=== PATIENT | male | born 1950 | race Caucasian/White ===

== ENCOUNTER 2024-03-05 05:30 | Observation (INO) | payer MEDICARE, OTHER ==
[2024-02-21 14:15] VITALS: BP 128/89
[~2024-03-05] VITALS: Ht 185.4 cm; Wt 118.1 kg
[2024-03-05] VITALS (14 sets, daily range): BP systolic 107–129; BP diastolic 72–102
[~2024-03-05 05:30] MED LIST: ADULT ASPIRIN R81 MG PO; ATORVASTATIN CA80 MG PO; CARVEDILOL25 MG PO; FLOMAX0.4 MG PO; LACTATED RINGER'S 1,000 ML IV SCH; LEVOTHYROXINE25 MC1 PO; LISINOPRIL-HCT1 EACH PO; METFORMIN HCL1000 M1 PO; OZEMPIC0.25 MG/02 SQ
--- NOTE | 2024-03-05 06:30 | NUR ---
0630-PTS HR IS BTW 120-135 BPM. PT STATES "I FEEL FINE". PT IS ASYMPTOMATIC DENIES CHEST PAIN/PRESSURE, SOB, LIGHTHEADEDNESS, AND PALPITATIONS. UPDATED ELTON LAMAR AND VIKASH HERNANDEZ. EKG ORDERED. 0645-EKG RESULT SHOW A-FIB WITH RVR. DR. RODRIGUEZ IN PT'S ROOM. SURGERY CANCELLED. 0650-CARDIAC LABS ORDERED PER ELTON LAMAR. LAB IN PT'S ROOM. 0700-PT PLACED ON [address] RODRIGUEZ. 0730-PT PLACED ON 2L VIA NC PER ELTON LAMAR. 0755-HOSPITALIST IN PT'S ROOM FOR CONSULT. 0800-ORDERS FOR EKG AND LOPRESSOR 5MG PER DR. VALLE. ORDERS PLACED IN COMPUTER. PHARMACY AND [facility] CALLED. 0805-CHUCKY GARCIAPARTY PLAN SALES DIRECTOR STATES LOPRESSOR WILL BE GIVEN IN CCU. 0820-PT TRANSFERED TO CCU RM 130. REPORT GIVEN TO GEO GARCIA. PT TRANSGERS SELF TO BED. NO OTHER NEEDS AT THIS TIME.
[2024-03-05] MEDS ORDERED: ondansetron HCL 4 MG TAB PO SCH (07:00)
[2024-03-05] MEDS ORDERED: GABAPENTIN 600 MG TAB PO SCH (07:00)
[2024-03-05] MEDS ORDERED: PANTOPRAZOLE SODIUM 40 MG TABEC PO SCH (07:00)
[2024-03-05] MEDS ORDERED: IBLOOD GLUCOSE TEST STRIP 1 EA TEST VI PRN (07:00)
[2024-03-05] MEDS ORDERED: INTRA-ARTICULAR ANALGESIC INJECTION XX SCH (07:00)
[2024-03-05] MEDS ORDERED: LIDOCAINE HCL 1% 5 ML SDV INJ ONE (07:00)
[2024-03-05] MEDS ORDERED: TRANEXAMIC ACID 2,000 MG in SODIUM CHLORIDE 0.9% 100 ML IV SCH (07:00)
[2024-03-05] MEDS ORDERED: CEFAZOLIN SODIUM 2 GM/20 ML SYR IV SCH (07:00)
[2024-03-05] MEDS ORDERED: OXYCODONE HCL 5 MG TAB PO SCH (07:00)
[2024-03-05 07:06] LABS: BASOPHILS 0.6 % (0-2); EOSINOPHILS 1.2 % (0-6); HEMATOCRIT 38.7 % (35.0-50.0); HEMOGLOBIN 13.4 g/dL (12.0-18.0); LYMPHOCYTES 21.8 % (24-44); MCH 34.3 (27-36); MCHC 34.7 g/dl (30-36); MCV 98.8 fl (81-99); MONOCYTES 9.7 % (0-12); NEUTROPHILS 66.7 % (39-80); PLATELET COUNT 138 K/uL (140-440); RBC 3.91 M/ul (4.3-5.7); RDW 14.8 (10.5-15.0)
[2024-03-05 07:21] LABS: ALBUMIN 3.1 g/dL (3.4-5.0); ANION GAP 13.1 (7-21); BILIRUBIN, TOTAL 1.2 ng/dL (0.2-1.0); BUN/CREATININE RATIO 18.11 (6.0-28.6); CREATININE, SERUM 1.27 mg/dL (0.70-1.30); POTASSIUM 4.1 mmol/L (3.5-5.1); PROTEIN, TOTAL 6.2 g/dL (6.4-8.2)
--- NOTE | 2024-03-05 07:29 | NUR ---
VISITED DURING SPIRITUAL CARE ROUNDS. PT SUPPORTED BY SPOUSE IN ROOM, RELAYED INFORMATION FROM CARE TEAM. NO OVERT SIGNS OF ANXIETY. FOAMITE MIXER PROVIDED SUPPORTIVE PRESENCE, HOSPITALITY, PRAYER, FACILITATED INTERACTION WITH THERAPY ANIMAL. PT AND SPOUSE EXPRESSED GRATITUDE, CONFIDENCE IN CARE.
[2024-03-05 07:51] LABS: INR 1.2 (0.80-1.30); PROTIME 14.8 Sec (11.2-14.2)
[2024-03-05] MEDS ORDERED: METOPROLOL TARTRATE 5 MG/5 ML VIAL ONE (08:11)
[2024-03-05] MEDS ORDERED: METOPROLOL TARTRATE 5 MG/5 ML VIAL IV ONE (08:15)
--- NOTE | 2024-03-05 08:20 | NUR ---
73 YEAR OLD MALE PATIENT ADMITTED TO CCU VIA STRETCHER UNDER DR. SNOWDEN FROM DAY SURGERY WITH DX OF AFIB/RVR. SURGERY WAS PLANNED FOR THIS AM UNDER DR. RODRIGUEZ FOR RIGHT TOTAL HIP REPLACEMENT AND WAS FOUND TO BE IN AFIB RVR. UPON ADMIT TO CCU PATIENT IS ALERT, ORIENTED, COOPERATIVE. DENIES SHORTNESS OF BREATH, DENIES DIZZINESS, BARROS, CHEST PAIN, DENIES HIP PAIN. HAS HX OF CARDIAC STENTS. SLEEP APNEA, USES CPAP AT HOME. WILL BRING IN HOME CPAP. HEART RATE ON ARRIVAL TO CCU 138.
--- NOTE | 2024-03-05 08:23 | NUR ---
LOPRESSOR 5 MG IV GIVEN. BP-127/100 (111).
[2024-03-05] MEDS ORDERED: dilTIAZem HCL 25 MG/5 ML VIAL ONE (08:29)
[2024-03-05] MEDS ORDERED: IBLOOD GLUCOSE TEST STRIP 1 EA TEST XX PRN (08:30)
[2024-03-05] MEDS ORDERED: DEXTROSE 5% 1,000 ML IV PRN (08:30)
[2024-03-05] MEDS ORDERED: GLUCAGON,HUMAN RECOMBINANT 1 MG/ML VIAL SUB-Q PRN (08:30)
[2024-03-05] MEDS ORDERED: DEXTROSE 50% 50 ML SYR IV PRN ×2 (08:30)
[2024-03-05] MEDS ORDERED: dilTIAZem HCL 25 MG/5 ML VIAL IV ONE (08:30)
--- NOTE | 2024-03-05 08:30 | NUR ---
HR AFTER LOPRESSOR GIVEN 125. ORDERS RECEIVED TO GIVE CARDIZEM 10 MG IV . BP-127/102 (112). CARDIZEM GIVEN ORDERED.
--- NOTE | 2024-03-05 08:35 | NUR ---
HR-91, BP-100/75 (81). PATIENT DENIES PROBLEMS.
[2024-03-05] MEDS ORDERED: APIXABAN 5 MG TAB PO SCH (09:00)
[2024-03-05] MEDS ORDERED: dilTIAZem HCL 30 MG TAB PO SCH ×2 (09:00→20:00)
--- NOTE | 2024-03-05 09:00 | NUR ---
SITTING UP IN BED FOR BREAKFAST. PATIENT STATES HE IS FEELING FINE. PATIENT IN ROOM. PO CARDIZEM 30 MG AND ELIQUIS 5 MG PO GIVEN,
[2024-03-05 09:20] LABS: TSH, 3RD GENERATION 1.375 uIU/mL (0.358-3.740)
[2024-03-05] MEDS ORDERED: OZEMPIC1 MG/0.71 SUB-Q (09:58)
[2024-03-05] MEDS ORDERED: LEVOTHYROXINE25 MCG PO (09:59)
[2024-03-05] MEDS ORDERED: DOXYCYCLINE HY100 M3 PO (09:59)
[2024-03-05] MEDS ORDERED: METFORMIN HCL1000 MG PO (10:00)
--- NOTE | 2024-03-05 10:44 | NUR ---
VISITED DURING SPIRITUAL CARE ROUNDS. PT AND FAMILY MEMBER APPEARED TO BE SLEEPING. DID NOT DISTURB. PROVIDED PRAYER.
--- NOTE | 2024-03-05 11:37 | NUR ---
MED REC COMPLETE
[2024-03-05] MEDS ORDERED: PHARMACY RENAL DOSE ADJUSTMENT 1 DOSE MISC PO SCH (12:00)
[2024-03-05] MEDS ORDERED: IBLOOD GLUCOSE TEST STRIP 1 EA TEST XX SCH (12:00)
[2024-03-05] MEDS ORDERED: INSULIN LISPRO 100 UNIT/ML ML SUB-Q SCH (12:00)
--- NOTE | 2024-03-05 13:33 | NUR ---
RN IN ROOM TO ASSIST PT BACK TO BED FROM BATHROOM. HR ELEVATED TO 140'S WITH AMBULATION, PT DENIES ASSOCIATED SYMPTOMS. PT NOW RESTING IN BED WITH CALL LIGHT AT SIDE.
--- NOTE | 2024-03-05 13:54 | NUR ---
ALERT AND ORIENTED. LIVES WITH IN [place] HOME [place]. DEMOGRAPHICS VERIFIED WITH PATIENT. STATES HE HAS CPAP AND BORROWED A WALKER FROM A FRIEND FOR SURGERY HE WAS SUPPOSED TO HAVE TODAY, HIP ARTHROPLASTY. STATES HE DRIVES AT [place]. CAN ASSIST WITH TRANSPORTATION. HE HAS NO FINANCIAL ISSUES, ABLE TO PAY UTILITIES OBTAIN FOOD AND MEDICATIONS WITHOUT DIFFICULTY. DENIES OTHER NEEDS AT THIS TIME. WILL NOTIFY STAFF WITH CHANGES. HE IS PLANNING ON DISCHARGING TO HOME WITH .
--- NOTE | 2024-03-05 15:02 | NUR ---
SITTING UP IN BED READING. NO CHANGES. PATIENT IS W/O C/O. IN ROOM.
--- NOTE | 2024-03-05 16:00 | NUR ---
ASSESSMENT UNCHANGED. DENIES PAIN OR ANY PROBLEMS. SKIN WARM AND DRY.
--- NOTE | 2024-03-05 16:30 | NUR ---
AMBULATED IN ROOM. RESTING HR-77, WITH AMBULATION, HR TO 123. PATIENT STATES HE DOES FEEL FEW PALPATIONS. THIS IS THE FIRST TIME HE HAS FELT THE PALPATIONS. DR. SNOWDEN UPDATED ON HR AND BP, DR. SNOWDEN WILL INCREASE CARDIZEN TO 45 MG Q 8 HR. BACK TO BED W/O INCIDENT.
--- NOTE | 2024-03-05 17:00 | NUR ---
SITTING UP IN BED FOR DINNER. WHEN PATIENT NAPPING DUING THE DAY, CPAP WAS USED.
--- NOTE | 2024-03-05 18:00 | NUR ---
TOOK DINNER WELL. DENIES NAUSEA. RESTING WITH TV ON.
--- NOTE | 2024-03-05 19:05 | NUR ---
Report received from Ila GARCIA, patient resting in bed with no needs identified at this time, call light in reach. Will continue plan of care.
--- NOTE | 2024-03-05 19:18 | EKG ---
[facility] [address] [facility] [place], [place] [address] Signed Atrial fibrillation with rapid ventricular response Abnormal ECG When compared with ECG of 05-MAR-2024 07:27, (Unconfirmed) No significant change was found Confirmed by Ty Messina MD ([id number]) on 03/05/2024 7:18:33 PM Electronically Signed By: TY MESSINA MD 03/05/241917 PATIENT NAME: CLIVEKHADIJAH ALEXSANDER Electrocardiogram DATE OF : 48 PHYSICIAN: TY MESSINA MD REPORT #: [id number] REPORT IS CONFIDENTIAL AND NOT TO BE RELEASED WITHOUT AUTHORIZATION
--- NOTE | 2024-03-05 19:30 | NUR ---
REPORT TO NEXT SHIFT.
--- NOTE | 2024-03-05 19:34 | NUR ---
REPORT TO NEXT SHIFT.
--- NOTE | 2024-03-05 20:20 | NUR ---
Scheduled medications administered, CBG checked, no SS insulin required. Patient A+O, using home CPAP at this time. HR remains in Afib/Aflutter, normotensive, LSC, bowel tones active. Peripheral edema noted R >L, pulses intact, pt denies n/t. Denies pain or needs. Call light in reach.
--- NOTE | 2024-03-05 22:01 | NUR ---
Patient resting in bed with eyes closed, home CPAP in use, BP WNL. No needs identified at this time, unlabored RR noted. Call light in reach
--- NOTE | 2024-03-05 22:10 | NUR ---
Patient up to use urinal at bedside, able to do so independently, HR noted to increase, this RN to bedside where patient denies assistance, call light in reach
--- NOTE | 2024-03-05 23:20 | NUR ---
Patient noted to have spo2 87%, this RN to round, patient repositioned and adjusted CPAP, spo2 returns >90% and no further needs
[2024-03-06] VITALS (15 sets, daily range): BP systolic 107–163; BP diastolic 70–94
--- NOTE | 2024-03-06 00:15 | NUR ---
Patient resting in bed with eyes closed, even and unlabored respirations on CPAP, spo2 94%, continues to be in Afib with flutter waves noted, BP normotensive. No needs identified at this time call light in reach
--- NOTE | 2024-03-06 00:43 | NUR ---
Call light answered, patient up IND for urinal use, dark tea colored urine 200ml voided. Pt otherwise has no needs or concerns. Back to bed at this time, call light in reach
--- NOTE | 2024-03-06 02:18 | NUR ---
Scheduled cardizem PO administered. Pt awake in bed, in good spirits, updated on pt. status and plan for remainder of night, patient agreeable. Resting now with eyes closed, CPAP in place. VSS.
--- NOTE | 2024-03-06 04:03 | NUR ---
Patient resting with eyes closed and even and unlabored at this time, no needs identified, call light in reach
[2024-03-06 05:31] LABS: BASOPHILS 0.8 % (0-2); HEMATOCRIT 39.2 % (35.0-50.0); HEMOGLOBIN 13.3 g/dL (12.0-18.0); LYMPHOCYTES 22.6 % (24-44); MCH 33.8 (27-36); MCV 99.4 fl (81-99); MONOCYTES 11.1 % (0-12); NEUTROPHILS 63.5 % (39-80); PLATELET COUNT 144 K/uL (140-440); RBC 3.94 M/ul (4.3-5.7); RDW 14.9 (10.5-15.0)
[2024-03-06 05:44] LABS: ANION GAP 12.8 (7-21); CALCIUM 8.6 mg/dL (8.5-10.1); MAGNESIUM 1.9 mg/dL (1.8-2.4); POTASSIUM 3.8 mmol/L (3.5-5.1)
[2024-03-06] MEDS ORDERED: LEVOTHYROXINE SODIUM 25 MCG TAB PO SCH (06:00)
--- NOTE | 2024-03-06 06:16 | NUR ---
Assessment complete. Patient up to chair after several hours of restful sleep. Linens changed, fresh coffee provided, BP normotensive, no needs at this time.
--- NOTE | 2024-03-06 07:30 | NUR ---
REPORT RECEIVED. PATIENT SITTING UP IN CHAIR. DENIES PROBLEMS.
--- NOTE | 2024-03-06 07:46 | NUR ---
UR CLINICAL REVIEW: 2 MN FOR VERSALUS-MEETS OBS CRITERIA FOR AFIB WITH RVR MEDICARE OBS 03/05/24 @ 0817 ORDER MATCHES REG NO AUTH REQUIRED PER MEDICARE GUIDELINES DISCHARGE TO HOME WHEN STABLE DISCHARGE ANTICIPATED IN 24 HOURS
--- NOTE | 2024-03-06 08:00 | NUR ---
ASSESSMENT DONE. STATES HE SLEPT WELL. ASKING ABOUT POSSIBLE DISCHARGE TODAY. TOLD PT DR. SNOWDEN WILL BE HERE TO TALK ABOUT POC. PATIENT DENIES PAIN, NAUSEA, READY FOR BREAKFAST. REMIANS IN AFIB-FLUTTER. HR 70-90.
--- NOTE | 2024-03-06 08:10 | NUR ---
DR. SNOWDEN HERE TO SEE PATIENT, PLAN TO ORDER LONG ACTING CARDIZEM. PATEINT IS AWARE.
[2024-03-06] MEDS ORDERED: dilTIAZem HCL 240 MG CAPCR PO SCH (08:15)
--- NOTE | 2024-03-06 08:45 | NUR ---
TOOK BREAKFAST WELL. VOIDING TO URINAL. URINE IS CONCENTRATED. DENIES PAINFUL URINATION.
[2024-03-06] MEDS ORDERED: ATORVASTATIN 40 MG TAB PO SCH (09:00)
[2024-03-06] MEDS ORDERED: POTASSIUM CHLORIDE 10 MEQ TABCR PO ONE (09:00)
[2024-03-06] MEDS ORDERED: ASPIRIN 81 MG TABEC PO SCH (09:00)
[2024-03-06] MEDS ORDERED: TAMSULOSIN HCL 0.4 MG CAP PO SCH (09:00)
--- NOTE | 2024-03-06 09:35 | NUR ---
ECHO BEING DONE AT BEDSIDE.
[2024-03-06 09:59] LABS: BILIRUBIN, URINE NEGATIVE (negative); BLOOD/HGB, URINE LARGE (Negative); KETONE, URINE NEGATIVE (Negative); LEUK ESTERASE, URINE NEGATIVE (negative); NITRITE, URINE NEGATIVE (negative)
--- NOTE | 2024-03-06 10:00 | NUR ---
ECHO COMPLETE. PATIENT BACK TO CHAIR. HR 140 WITH MOVEMENT. DENIES DIZZINESS, SHORTNESS OF BREATH. FAMILY/FRIENDS IN ROOM.
[2024-03-06 10:08] LABS: BACTERIA, URINE RARE /hpf (negative); CASTS, URINE NONE SEEN \\lpf; COLLECTION TYPE, URINE CLEAN CATCH; CRYSTALS, URINE NONE SEEN (0-1+); EPITHELIAL CELLS, URINE SQUAMOUS 2+ /lpf (0-1+); RED BLOOD CELLS, URINE >50 /hpf (0-5); REFLEX CULTURE, URINE No (No)
[2024-03-06] MEDS ORDERED: dilTIAZem HCL 25 MG/5 ML VIAL IV ONE (10:30)
--- NOTE | 2024-03-06 10:30 | NUR ---
CARDIZEM 10 MG IV GIVEN ORDERED. HR-140.
--- NOTE | 2024-03-06 11:01 | NUR ---
PT NOT AVAILABLE FOR VISIT. PROVIDED PRAYER.
[2024-03-06] MEDS ORDERED: METOPROLOL TARTRATE 25 MG TAB PO SCH (12:45)
--- NOTE | 2024-03-06 16:10 | NUR ---
VOIDING RUST COLOR URINE. DR. SNOWDEN IS AWARE, UA WAS ORDERED THIS AM AND SHOWED LG RED BLOOD CELLS. WAS STARTED ON ELIQUIS YESTERDAY FOR ATRIAL RHYTUM. PATIENT DENIES PAINFUL URINATION. PATIENT IS IN ROOM. PATIENT OUT OF BED ANBULATING IN WHELAN ON MONITOR, RN WITH PATIENT. HR AT REST HIGH 60'S TO MID 70'S, WITH AMBULATION HR 98-110. DENIES DIZZINESS, VERY MILD SHORTNESS OF BREATH. DR. SNOWDEN IN DEPARTMENT AND AWARE OF HR WITH AMBULATION. NO FURTHER ORDERS. ASSESSMENT UNCHANGED.
--- NOTE | 2024-03-06 18:45 | NUR ---
RESTING ON HIS CPAP.
--- NOTE | 2024-03-06 19:02 | NUR ---
AWAKE, WATCHING TV. HR 76. REMAINS IN A-FLUTTER. REPORT TO NEXT SHIFT.
--- NOTE | 2024-03-06 21:15 | NUR ---
REPORT RECIEVED FROM CCU RN. THIS RN ASSUMING CARE OF PATIENT. TELE IN PLACE. VS OBTAINED AND RECORDED. SCHEDULED MEDICATION ADMINISTERED. PATIENT EDUCATED TO ROOM AND CALL LIGHT. PATIENT VERBILIZES UNDERSTANDING. PATIENT DENIES SOB OR PAIN AT THIS TIME. PATIENT HAS NO FURTHER NEEDS. CALL LIGHT IN REACH.
--- NOTE | 2024-03-06 23:22 | NUR ---
PATIENT RESTING IN BED ON BACK. DENIES NEEDS AT THIS TIME. CALL LIGHT IN REACH.
[2024-03-07 00:52] VITALS: BP 114/75
[2024-03-07 00:54] VITALS: BP 114/75
--- NOTE | 2024-03-07 00:55 | NUR ---
VS AND I&Os OBTAINED AND RECORDED. PATIENT DENIES FURTHER NEEDS AT THIS TIME. CALL LIGHT IN REACH.
--- NOTE | 2024-03-07 02:34 | NUR ---
PATIENT RESTING IN CHAIR. DENIES NEEDS AT THIS TIME. CALL LIGHT IN REACH.
[2024-03-07 04:29] VITALS: BP 128/90
[2024-03-07 04:31] VITALS: BP 128/90
--- NOTE | 2024-03-07 04:35 | NUR ---
PATIENT CALL LIGHT ANSWERED. PATIENT STATES HE HAD SOME SOB AND HAD TO PULL HIS CPAP OFF. PATIENT STATES "I HAD A LITTLE BIT OF CHEST PAIN. IT COULD BE INDIGESTION". PATIENT DENIES SOB OR CHEST PAIN AT THIS TIME. VITAL SIGNS STABLE. ASSESSMENT COMPLETE. LUNG SOUNDS CLEAR. HR 70s AT THIS TIME. O2 98% ON RA. PATIENT EDUCATED TO CALL AGAIN IF THIS HAPPENS. PATIENT VERBILIZES UNDERSTANDING. PATIENT HAS NO FURTHER NEEDS AT THIS TIME. CALL LIGHT IN REACH.
--- NOTE | 2024-03-07 05:47 | NUR ---
SCHEDULED MEDICATION ADMINISTERED. PATIENT DENIES FURTHER NEEDS. CALL LIGHT IN REACH.
[2024-03-07 05:57] LABS: BASOPHILS 0.6 % (0-2); EOSINOPHILS 1.6 % (0-6); HEMATOCRIT 41.1 % (35.0-50.0); HEMOGLOBIN 13.8 g/dL (12.0-18.0); LYMPHOCYTES 19.5 % (24-44); MCH 33.6 (27-36); MCHC 33.6 g/dl (30-36); MCV 99.9 fl (81-99); MONOCYTES 12.1 % (0-12); NEUTROPHILS 66.2 % (39-80); PLATELET COUNT 147 K/uL (140-440); RBC 4.11 M/ul (4.3-5.7); RDW 14.7 (10.5-15.0)
[2024-03-07 06:09] LABS: BUN/CREATININE RATIO 14.51 (6.0-28.6); CALCIUM 8.8 mg/dL (8.5-10.1); CREATININE, SERUM 1.24 mg/dL (0.70-1.30); MAGNESIUM 1.9 mg/dL (1.8-2.4)
--- NOTE | 2024-03-07 07:25 | NUR ---
PT SITTING UP IN CHAIR WITH CALL LIGHT WITHIN REACH. NO REQUESTS AT THIS TIME.
--- NOTE | 2024-03-07 08:10 | NUR ---
PATIENT IN CHAIR AT THIS TIME. BLOODSUGAR CHARTED BY BRUSH FILLER HAND. CALL LIGHT WITHIN REACH, NO FURTHER NEEDS AT THIS TIME.
--- NOTE | 2024-03-07 08:51 | NUR ---
ASSESSMENT COMPLETE, TEACHING DONE REGARDING HEART RATE AND POSSIBLE SYMPTOMS OF IRREGULAR HEART RATE. PT SITTING UP IN CHAIR EATING BREAKFAST, DENIES SOB OR CHEST PAIN, TELE INTACT. PT DENIES PAIN AT THIS TIME, CALL LIGHT WITHIN REACH, NO REQUESTS AT THIS TIME.
[2024-03-07 10:31] VITALS: BP 108/76
[2024-03-07 10:33] VITALS: BP 108/76
--- NOTE | 2024-03-07 10:35 | NUR ---
PATIENT SITTING UP IN CHAIR, AT BEDSIDE. VITALS AND I&O'S DONE AND CHARTED. NICCI LIGHT IN REACH. NO FURTHER NEEDS AT THIS TIME.
--- NOTE | 2024-03-07 10:39 | NUR ---
DR SORIANOUNG IN TO VISIT WITH PT AND DISCUSS POC.
[2024-03-07] MEDS ORDERED: ELIQUIS5 MG PO (10:43)
[2024-03-07] MEDS ORDERED: DILTIAZEM 24HR240 M1 PO (10:43)
[2024-03-07] MEDS ORDERED: METOPROLOL TART25 MG PO (10:44)
--- NOTE | 2024-03-07 11:42 | NUR ---
Spoke with pt and his . They are discharging today. They deny any needs.
== END 2024-03-07 11:40 | disposition home or self-care (01) ==
LOC: DS 05:30 → CCU 08:18 → DS 08:30 → MS 03-06 20:09
PROVIDERS: Specialist; ADMIT Student in an Organized Health Care Education/Training Program; ATTEND Student in an Organized Health Care Education/Training Program
DX: I48.91 Unspecified atrial fibrillation (principal); I25.10 Atherosclerotic heart disease of native coronary artery without angina pectoris; E11.9 Type 2 diabetes mellitus without complications; E03.9 Hypothyroidism, unspecified; M16.11 Unilateral primary osteoarthritis, right hip; G47.33 Obstructive sleep apnea (adult) (pediatric); N40.0 Benign prostatic hyperplasia without lower urinary tract symptoms; E78.00 Pure hypercholesterolemia, unspecified; Z79.82 Long term (current) use of aspirin; Z79.899 Other long term (current) drug therapy; Z79.84 Long term (current) use of oral hypoglycemic drugs; Z79.01 Long term (current) use of anticoagulants; Z53.9 Procedure and treatment not carried out, unspecified reason; Z95.5 Presence of coronary angioplasty implant and graft
CPT/HCPCS: 36415; 71045; 80048; 80053; 81001; 83735; 84439; 84443; 84484; 85025; 85379; 85610; 93005; 93010; 93306; 96374; 96375; 96376; A9270; G0378; J0690; J7121